=== PATIENT | female | born 1955 | race Caucasian/White ===

== ENCOUNTER 2019-03-16 06:15 | Day surgery (SDC) | payer BC ==
[~2019-03-16] VITALS: Ht 154.9 cm; Wt 108.0 kg
[~2019-03-16 06:15] MED LIST: GLUCOSAMINE1000 MG PO; LIPITOR10 MG PO; MULTIVITAMINS1 EAC7 PO; VITAMIN D400 UNIT PO
--- NOTE | 2019-03-16 08:02 | NUR ---
03/16/19 0802 Tess,Giana 0753 PT ARRIVED TO PACU ON 3L VIA NC, RESP EVEN AND UNLABROED. VSS. 0755 PT WOKE TO TACTILE STIMULI AND DENIES PAIN AND NAUSEA. PT ENCOURAGED TO PASS GAS/AIR. PT BACK TO SLEEP.
--- NOTE | 2019-03-16 10:42 | OR ---
[facility] [address] [place], [place] [address] Signed DATE OF OPERATION: 03/16/2019 SURGEON: Dariana Byers MD PREOPERATIVE DIAGNOSES: 1. Screening. 2. Status post PPH stapler and hemorrhoidectomy. POSTOPERATIVE DIAGNOSES: 1. 4 mm polyp at cecum. 2. 4 mm polyp at 62 cm. 3. Minimal internal and external hemorrhoids. 4. Small external anal skin tag. PROCEDURE: Colonoscopy with hot biopsy. ESTIMATED BLOOD LOSS: None. 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 She came to us in 2007, had fairly significant internal and external hemorrhoids. She underwent the PPH hemorrhoidopexy with both internal and external hemorrhoidectomy as well. She has now markedly improved. She has no personal or family history of colonic polyps or cancer. She returns now for followup colonoscopy. In the office, I gave her a pamphlet on colonoscopy. She understands the nature of the test along with the risks including, but not limited to gas bloating, crampy abdominal pain, bleeding, perforation, requiring surgery, and missed diagnosis. She also understands the need for IV conscious sedation. She had expressed understanding and wished to proceed. PROCEDURE NOTE: Arias was taken into our endoscopy suite and placed in the left lateral decubitus position. She received 4 mg of Versed and 100 mcg of fentanyl to cover the case. A digital rectal exam was performed. She has some very small external hemorrhoid tissue and one external anal skin tag. Good sphincter tone. The adult colonoscope was introduced and advanced all around into the cecum under direct visualization of camera without difficulty. Her prep was quite excellent. The scope was then slowly withdrawn. The above-mentioned polyps were easily removed with the help of hot biopsy forceps. Once in the rectum, the scope had been retroflexed and she has a small amount of Electronically Signed By: DARIANA BYERS MD 03/16/19 1042 PATIENT NAME: ARIAS BANEGAS OPERATIVE REPORT DATE OF : 59 REPORT #: [id number] PHYSICIAN: DARIANA BYERS MD PCP: TRACEY STEPHENSON MD REPORT IS CONFIDENTIAL AND NOT TO BE RELEASED WITHOUT AUTHORIZATION [facility] [address] [place] [id number] Signed internal hemorrhoid tissue. It has markedly improved from what she had before. After this, the gas was suctioned out and colonoscope removed. Arias tolerated the procedure quite well. RECOMMENDATIONS: I will see Arias back in my office in 7 to 14 days to review her results. MD DAV Andrea/JONATHANL /[id number] cc: MD Catrina Andrea MD Gwen Libby, MD Copies: DARIANA BYERS MD, PATRICIA J MD ~ Electronically Signed By: DARIANA BYERS MD 03/16/19 1042 PATIENT NAME: ARIAS BANEGAS OPERATIVE REPORT DATE OF : 59 REPORT #: [id number] PHYSICIAN: DARIANA BYERS MD PCP: TRACEY STEPHENSON MD REPORT IS CONFIDENTIAL AND NOT TO BE RELEASED WITHOUT AUTHORIZATION
== END 2019-03-16 12:00 | disposition home or self-care (01) ==
LOC: DS 06:15 → OPS 06:15 → DS 06:45 → OPS 12:00
PROVIDERS: Colon & Rectal Surgery
PROC: 0DBE8ZX Excision of Large Intestine, Via Natural or Artificial Opening Endoscopic, Diagnostic (ICD-10-PCS; 2019-03-16)
PROC: 0DBH8ZX Excision of Cecum, Via Natural or Artificial Opening Endoscopic, Diagnostic (ICD-10-PCS; principal; 2019-03-16 06:45)
DX: Z12.11 Encounter for screening for malignant neoplasm of colon (principal); D12.0 Benign neoplasm of cecum; D12.6 Benign neoplasm of colon, unspecified; K64.8 Other hemorrhoids; K64.4 Residual hemorrhoidal skin tags; E78.5 Hyperlipidemia, unspecified; E66.9 Obesity, unspecified; E78.00 Pure hypercholesterolemia, unspecified; Z98.890 Other specified postprocedural states; Z79.899 Other long term (current) drug therapy; Z68.41 Body mass index [BMI] 40.0-44.9, adult
CPT/HCPCS: 99153; G0500; J2250; J3010; J7120

== ENCOUNTER 2021-10-28 09:45 | Day surgery (SDC) | payer BC ==
[~2021-10-28] VITALS: Ht 154.9 cm; Wt 104.5 kg
--- NOTE | 2021-10-28 10:00 | NUR ---
both nares swabbed for covid-19 without complication. sample taken to lab.
[2021-10-28] MEDS ORDERED: CLINDAMYCIN HC300 MG PO (11:09)
[2021-10-28] MEDS ORDERED: OXYBUTYNIN CHLOR5 MG PO (11:10)
--- NOTE | 2021-10-28 16:28 | NUR ---
1515: CONSENT SIGNED. NO OTHER NEEDS AT THIS TIME. ANESTHESIA IN TO SPEAK WITH PATIENT. 1610: VS CHECKED. PATIENT WATCHING TV. NO NEEDS AT THIS TIME. CALL LIGHT WITHIN REACH.
--- NOTE | 2021-10-28 17:54 | NUR ---
10/28/21 175 Sheree Frey 1747 PATIENT ARRIVES TO PACU RESTING WITH EYES CLOSED. RESP EVEN AND UNLABORED, MASK AT 6 LITERS. PATIENT REPORTS DULL ACHE. 1752 PATIENT AWAKE OFF/ON. RESP EVEN AND UNLABORED, MASK AT 6 LITERS. REPORTS PAIN AT 3/10. DENIES NAUSEA.
[2021-10-28] MEDS ORDERED: ACETAMINOPHEN500 MG PO (18:11)
[2021-10-28] MEDS ORDERED: AMOX TR-K CLV1 EACH PO (18:11)
[2021-10-28] MEDS ORDERED: IBUPROFEN600 MG PO (18:11)
[2021-10-28] MEDS ORDERED: OXYCODON-ACETA1 EAC2 PO (18:11)
--- NOTE | 2021-10-28 18:35 | NUR ---
Patient arrives to med surg unit via stretcher. VSS, 95% on room air, pt given ice water, crackers and pudding. Prescriptions received and Dr Sheth writes prescriptions for home packs from ED as pharmacies are beginning to close at this time. IVF infusing. Pt states tolerable level of pain at this time, wants to tolerate PO intake prior to taking PO ABX and pain medication.
--- NOTE | 2021-10-28 19:05 | NUR ---
RECEIVED REPORT FROM DAY SHIFT RN. PATIENT IS RESTING IN SURGERY STRETCHER. PATIENT DENIES ANY PAIN OR NAUSEA. CALL LIGHT IN [facility].
--- NOTE | 2021-10-28 19:55 | NUR ---
ASSISTED PATIENT WALKED TO THE BATHROOM. PATIENT VOIDED 550ML. PATIENT IS ALL DRESSED UP. PATIENT IS BACK IN STRETCHER. PATIENT PROVIDED TV REMOTE.
--- NOTE | 2021-10-28 20:00 | NUR ---
PATIENT ASSISTED TO THE RESTROOM A SBA. PATIENT IS STEADY ON HER FEET. GROUP LEADER WAFER POLISHING REMAINS IN THE ROOM. CALL LIGHT IN REACH.
--- NOTE | 2021-10-28 20:30 | NUR ---
PATIENT IS RESTING IN BED WATCHING TV. PHARMACY PRESENT IN THE ROOM. PATIENT DENIES ANY NEEDS. CALL LIGHT IN REACH.
--- NOTE | 2021-10-28 21:45 | NUR ---
VS COMPLETED @ 2049, SCHEDULED MEDICATIONS GIVEN PRIOR TO DISCHARGE. EDUCATION PT AND HOW TO CARE FOR THE SONJA, HOW TO EMPTY. DISCHARGE PAPERWORK AND INSTRUCTIONS GIVEN TO BOTH PT AND . IV WAS DC'D INTACT. @ 2109 PT WAS TAKEN OUT TO PRIVATE AUTO VIA THE BACK HALLWAY IN WHEELCHAIR WITH SECURITY SAXENA. ALL QUESTIONS ANSWERED. HOME PACK AMOXICILLIN WELL PAIN MEDICATION SENT WITH . ANTON, , DID GET SCRIPTS FILLED AND PICKUP AT [facility] PRIOR TO DISCHARGE.
--- NOTE | 2021-10-29 13:37 | HP ---
[facility] [address] [place], [place] [address] Signed ADMISSION DATE: 10/28/2021 PROBLEM: Right inferolateral persistent breast abscess. HISTORY OF PRESENT ILLNESS: This 66-year-old white woman, last week on about Wednesday, was identified as having erythema and tenderness of the right lateral inferior breast. She has undergone mammogram in the past year, which was normal and has mammograms annually. She does have family history of breast cancer in a sister. She has never had breast problems in the past. She was identified as having a probable infection including cellulitic changes and possible abscess. She underwent imaging study including an ultrasound on October 22, 2021 and was found likely to have an abscess and underwent drainage by Dr. Rolon, the radiologist for that. Gram stains were obtained. Final result is not available through the computer unfortunately. She was initially seen by Dr. Toussaint and now seen by Dr. Laurel Martin. I was called by Dr. Martin, who evaluated the patient in his clinic today showing persistence of a mass in the right breast, improved cellulitic changes, but definitely a tenderness and a dense mass and excoriation of skin over the area of previous aspiration. I saw the patient in Dr. Martin office exam room. PAST MEDICAL HISTORY: Remarkable for obesity. MEDICATIONS: Her only medications include: 1. Clindamycin 300 mg 4 times a day. 2. Oxybutynin chloride 5 mg daily. 3. Vitamin D3 400 units daily. SOCIAL HISTORY: She is . Her is Jemal Smith, director of Pastoral Care Services in the hospital. REVIEW OF SYSTEMS: Electronically Signed By: ODESSA DUENAS MD 10/29/21 1337 PATIENT NAME: ARIAS SMITH HISTORY AND PHYSICAL DATE OF : 59 REPORT #: [id number] PHYSICIAN: ODESSA DUENAS MD PCP: SHARI TOUSSAINT MD REPORT IS CONFIDENTIAL AND NOT TO BE RELEASED WITHOUT AUTHORIZATION [facility] [address] [place], [place] [address] Signed She denies any fever or chills currently. She has had no nipple discharge. Pain in her breast is persistent, but not worsening. She has had no fever or chills. PHYSICAL EXAMINATION: GENERAL: A pleasant white woman who looks to be in no significant distress at the moment. HEENT: Trachea is midline. CHEST: Shows normal respiratory excursion. Pulses regular. With the clinic nurse of Dr. Martin, examination of the right breast was undertaken showing an excoriated area of the right lateral inferior breast as well as a dense mass about 5 cm in size with focal tenderness. There is still some mild erythema of the breast. There is no nipple discharge. Review of imaging studies including the breast ultrasound report showed no evidence particularly of breast cancer. ASSESSMENT: The patient has persistent breast abscess and although improved from drainage, certainly not complete drainage at this point. I have recommended admission anticipating incision and drainage of the abscess process. The risks of bleeding, infection, cosmetic deformity, and so forth were reviewed with her. It would be unlikely that she would have breast cancer associated with this problem, though she is at increased risk based on her family history with her sister's history of breast cancer. The patient understands the risks we have described and wishes to proceed. We will plan to do this later in the day. Notably, she has then nothing to eat all day except for her medications, which she took with a sip of water today. Odessa Duenas MD JM/MODL /[id number] cc: Shari Toussaint MD Electronically Signed By: ODESSA DUENAS MD 10/29/21 1337 PATIENT NAME: ARIAS SMITH HISTORY AND PHYSICAL DATE OF : 59 REPORT #: [id number] PHYSICIAN: ODESSA DUENAS MD PCP: SHARI TOUSSAINT MD REPORT IS CONFIDENTIAL AND NOT TO BE RELEASED WITHOUT AUTHORIZATION [facility] [address] [place], [place] [address] Gonzales Evans Copies: LAUREL MARTIN MD ~ Electronically Signed By: ODESSA DUENAS MD 10/29/21 1337 PATIENT NAME: ARIAS SMITH HISTORY AND PHYSICAL DATE OF : 59 REPORT #: [id number] PHYSICIAN: ODESSA DUENAS MD PCP: SHARI TOUSSAINT MD REPORT IS CONFIDENTIAL AND NOT TO BE RELEASED WITHOUT AUTHORIZATION
--- NOTE | 2021-10-29 13:37 | OR ---
[facility] [address] [place], [place] [address] Signed DATE OF OPERATION: 10/28/2021 SURGEON: Odessa Duenas MD PREOPERATIVE DIAGNOSES: 1. Recent right breast cellulitis with abscess (drained by ultrasound guidance). 2. Persistent tender mass, right lateral breast, possible persistent abscess. 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 PROCEDURES: 1. Excision of right breast skin with breast parenchyma in continuity (wide breast biopsy). 2. Irrigation and debridement of remaining fibrotic and inflammed parenchyma of right lateral breast. 3. Placement of closed suction drain (Johnny drain). ANESTHESIA: General endotracheal, Mannie Mcgregor CRNA DRAINS: 7 mm Johnny. INDICATION: This 66-year-old white woman has undergone in the past right bilateral breast reduction operation. She is a patient of Dr. Shari Toussaint generally. Last week on or about Wednesday (today is Wednesday). She was noted to have erythema of the breast and high suggestion of abscess. Ultrasonographic evaluation was undertaken and percutaneous abscess drainage was performed by Dr. Rolon, radiologist. She was placed on clindamycin antibiotic. She has had persistent erythema of the breast and was seen by Dr. Laurel Martin today, who called me to his clinic where I evaluated her. She had general improvement of the cellulitic process, but still was some skin excoriation and de epithelialization of the skin and a dense mass in the area of prior aspiration biopsy. The desquamation of the skin associated with this was approximately 2 x 3 cm in size. Clinical examination showed her likely to have persistent abscess or recurrent abscess or other similar process and on that basis, she was directly admitted and is now to undergo drainage of the abscess if recurrent, and debridement as appropriate. Electronically Signed By: ODESSA DUENAS MD 10/29/21 1337 PATIENT NAME: ARIAS BANEGAS OPERATIVE REPORT DATE OF : 59 REPORT #: [id number] PHYSICIAN: ODESSA DUENAS MD PCP: SHARI TOUSSAINT MD REPORT IS CONFIDENTIAL AND NOT TO BE RELEASED WITHOUT AUTHORIZATION [facility] [address] [place], [place] [address] Signed The patient and her understand the risks of bleeding, infection, cosmetic deformity, and other unforeseen complications and wished to proceed. FINDINGS: The area of bulky mass was in the lateral inferior aspect of the right breast. Excoriated skin approximately 3 cm in length was noted directly over this, which did not look to be salvageable by usual wound healing method. On that basis, elliptical excision was undertaken of that skin and dissection carried through the subcutaneous tissue into the breast parenchyma where intense inflammatory changes were noted. The area of prior drainage appeared to be free of true liquid pus. The needle tract could be seen lateral to the site of excoriated skin. Dense necrotic fat and so forth were noted. On that basis, wide resection was undertaken. Dissection was carried back to normal fat tissue. Lots of recruited blood vessels were noted to the area and electrocautery was used to secure hemostasis there. Gram stain and cultures were obtained of the wound. This was not a typical recurrent or persistent abscess and granulomatous mastitis is considered a possibility. We are mindful that she does have family history of breast cancer in a sister. She has had a negative mammogram in November of this year. DESCRIPTION OF PROCEDURE: The patient was brought to the operating room, given a general endotracheal anesthetic. Preoperative antibiotic Ancef was given. Sequential compression device stockings were used. The right breast, axilla, and shoulder area was prepared with a chlorhexidine solution and draped sterilely. An evaluation of the mass showed it to be at least 4-5 cm in size. The excoriated skin, which likely was accounting for her "drainage" was noted. Elliptical excision was undertaken of this in the few millimeters margin and dissection carried through the subcutaneous tissue where necrotic fat was noted. Further dissection deep into the parenchyma of the breast showed the area of presumed abscess cavity to be free of free-flowing purulence. That was Gram stain and cultured. The necrotic tissue in the subdermal space was quite obvious otherwise, however. Wide resection was undertaken of this area and the actual procedure was really a generous breast biopsy excising the inflammatory cavity and necrotic tissue completely. Irrigation was undertaken and hemostasis assured with electrocautery. Aricept dilute chlorhexidine solution was used to irrigate the wound after saline irrigation. Through a separate stab incision in the inframammary crease, a 7 mm flat Johnny drain was placed. The wound was then closed with interrupted 2-0 Vicryl in deep dermal layer. The skin was not otherwise closed. A bulb suction provided good suction to the wound. An Acticoat dressing was then applied to the incision site itself. The drain was secured Electronically Signed By: ODESSA DUENAS MD 10/29/21 1337 PATIENT NAME: ARIAS BANEGAS OPERATIVE REPORT DATE OF : 59 REPORT #: [id number] PHYSICIAN: ODESSA DUENAS MD PCP: SHARI TOUSSAINT MD REPORT IS CONFIDENTIAL AND NOT TO BE RELEASED WITHOUT AUTHORIZATION [address], [place] [address] Signed to the skin with nylon suture and attached to bulb suction, which allowed for persistent suctioning. The patient was ultimately extubated and transferred to the recovery room in good condition having suffered no complications. Sponge, needle, and instruments counts reported as correct x3. MD LAURA Matta/GISSELLE /[id number] cc: MD Shari Evans MD Mark MD Peterson Copies: LAUREL MARTIN MD ~ Electronically Signed By: ODESSA DUENAS MD 10/29/21 1337 PATIENT NAME: ARIAS BANEGAS OPERATIVE REPORT DATE OF : 59 REPORT #: [id number] PHYSICIAN: ODESSA DUENAS MD PCP: SHARI TOUSSAINT MD REPORT IS CONFIDENTIAL AND NOT TO BE RELEASED WITHOUT AUTHORIZATION
--- NOTE | 2021-10-31 17:37 | PATH ---
[facility] [address] [place], [place] [address] Signed SPECIMEN(S): A RIGHT LATERAL BREAST SPECIMEN SOURCE: A. RIGHT LATERAL BREAST CLINICAL HISTORY: Right breast abscess, incisional biopsy FINAL PATHOLOGIC DIAGNOSIS: Breast, right lateral, incisional biopsy: - Breast tissue with abscess formation, fat necrosis and skin ulceration. - Granulation tissue formation is forming in the dermis in the dermis immediately underneath the ulcer. TWK:cml:C2NR MICROSCOPIC EXAMINATION: Histologic sections of all submitted blocks are examined by light microscopy. These findings, together with the gross examination, support the pathologic diagnosis. GROSS DESCRIPTION: The specimen, labeled "Arias Smith," and designated on the requisition "incisional breast biopsy right lateral breast," is received in formalin and consists of 31 g of yellow-pink fibroadipose tissue that is 7.6 x 5.4 x 2.1 cm in aggregate. The largest tissue fragment is partially surfaced by a 4.7 x 2.1 cm ellipse of skin. The skin surface is a pale henley with an area of quintana-green discoloration that is 2.6 x 1.9 cm. This area of discoloration extends into the skin margin. The tissue fragments are inked and sectioned revealing a yellow-white dense rubbery fibrous tissue with focal areas of yellow chalky material. No discrete mass lesions are grossly identified. Soils Technician sections are submitted in cassettes (A1-A6). Cold ischemia time: Insufficient data to calculate. Approximate Formalin time: 24-28 hours. FB (under the direct supervision of a pathologist) The Gross Description was prepared using a voice recognition system. The report was reviewed for accuracy; however, sound-alike word errors, addition and/or deletions may occur. If there is any question about this report, please contact Client Services. PATIENT NAME: ARIAS SMITH PATHOLOGY DATE OF : 59 REPORT #: [id number] PHYSICIAN: JESSICA LEE PCP: TRACEY STEPHENSON MD REPORT IS CONFIDENTIAL AND NOT TO BE RELEASED WITHOUT AUTHORIZATION [facility] [address] [place], [place] [address] Signed PERFORMING LABORATORY: The [facility] [place] [address] (Network Announcer: Galina Beckham MD; CLIA# [id number]). Professional interpretation was performed by [facility], [address] [address] (CLIA# [id number]). Diagnostician: Chadwick Calzada MD Pathologist Electronically Signed 10/31/2021 Copies: ~ PATIENT NAME: ARIAS SMITH PATHOLOGY DATE OF : 59 REPORT #: [id number] PHYSICIAN: JESSICA LEE PCP: TRACEY STEPHENSON MD REPORT IS CONFIDENTIAL AND NOT TO BE RELEASED WITHOUT AUTHORIZATION
== END 2021-10-28 21:10 | disposition home or self-care (01) ==
LOC: DS 09:45 → MS 18:35 → DS 21:10
PROVIDERS: ATTEND Surgery
PROC: 0HB5XZZ Excision of Chest Skin, External Approach (ICD-10-PCS; principal; 2021-10-28 14:45)
DX: N61.1 Abscess of the breast and nipple (principal); N64.1 Fat necrosis of breast; L98.499 Non-pressure chronic ulcer of skin of other sites with unspecified severity; Z80.3 Family history of malignant neoplasm of breast; Z20.822 Contact with and (suspected) exposure to COVID-19
CPT/HCPCS: 00404; 80053; 85025; 87070; 87075; 87205; C9803; J0131; J0690; J1100; J1885; J2001; J2405; J2704; J3010; J7121; U0003

== ENCOUNTER 2023-03-18 08:24 | Day surgery (SDC) | payer BC ==
[~2023-03-18 08:24] MED LIST changes: +ACETAMINOPHEN500 MG PO; +AMITRIPTYLINE H25 MG PO; +AMOX TR-K CLV1 EACH PO; +CLINDAMYCIN HC300 MG PO; +DITROPAN XL10 MG PO; +IBUPROFEN600 MG PO; +LISINOPRIL10 MG PO; +LOSARTAN POTASS25 MG PO; +OXYBUTYNIN CHLOR5 MG PO; +OXYCODON-ACETA1 EAC2 PO
[2023-03-18 08:45] VITALS: BP 134/64
--- NOTE | 2023-03-18 09:46 | NUR ---
WAS WITH PT WHEN I CAME IN. WE VISITED FOR A BIT. PT EXPRESSED THEY WERE READY FOR THE PROCEEDURE. PRAYED WITH PT AND .
--- NOTE | 2023-03-18 11:07 | NUR ---
03/18/23 1107 Keshia Gamble 1055-PATIENT ARRIVED TO PACU ON 2L NC RR EVEN. PATIENT LAYING LEFT LATERAL IVF INFUSING. PATIENT AWAKE DROWSY DENIES PAIN OR NAUSEA ENCOURAGED TO PASS GAS. BP CUFF READING HIGH CUFF ADJUSTED. 1106-BP 118/63 BP CUFF READJUSTED AND NEW FOREARM CUFF PLACE. PATIENT SLEEPING 2L NC RR EVEN 98% IVF INFUSING
[2023-03-18 11:46] VITALS: BP 115/72
--- NOTE | 2023-03-18 17:37 | OR ---
[facility] [address] [place], [place] [address] Signed DATE OF OPERATION: 03/18/2023 SURGEON: Odessa Duenas MD PREOPERATIVE DIAGNOSIS: History of polyps. POSTOPERATIVE DIAGNOSES: 1. External perianal skin tags (large). 2. Polyps x2, right colon. PROCEDURE: Total colonoscopy to cecum with cold snare polypectomy x1, cold morcellation polypectomy x1. ANESTHESIA: Intravenous sedation; fentanyl 100 mcg and Versed 4 mg. INDICATION: This 68-year-old white woman is a patient Dr. Toussaint. She has undergone colonoscopy in the past and had been found to have polyps. She is symptom free currently. She is admitted to undergo surveillance colonoscopy. She understands the risk of bleeding, infection, and perforation. FINDINGS: The prep was excellent. Complete colonoscopy was undertaken to the cecum without question. She did have an external skin tag that was rather large on the perianal area. She had two small polyps of the right colon, both excised completely. The remaining colon was essentially normal. DESCRIPTION OF PROCEDURE: The patient was brought to the endoscopy suite and placed in the lateral decubitus position, given intravenous sedation to the point of slurred speech and nystagmus. Digital rectal examination was normal except for external skin tags as previously described. An Olympus video colonoscope was passed in the rectum and manipulated throughout the colon ultimately intubating the cecum itself. The ileocecal valve and appendiceal orifice were normal. Scope was withdrawn in the mid ascending colon with two small polyps. One excised with cold snare technique, the other with cold morcellation technique. Both were retrieved and passed for pathology. The scope was withdrawn further and remaining colon was normal including retroflexed view. Scope was Electronically Signed By: ODESSA DUENAS MD 03/18/23 1737 PATIENT NAME: ARIAS BANEGAS OPERATIVE REPORT DATE OF : 59 REPORT #: [id number] PHYSICIAN: ODESSA DUENAS MD PCP: SHARI TOUSSAINT MD REPORT IS CONFIDENTIAL AND NOT TO BE RELEASED WITHOUT AUTHORIZATION [facility] [address] [place], [place] [address] Signed removed and the patient was taken to the recovery room in good condition. CONCLUDING DIAGNOSIS: Polyps x2. PLAN: Recommend repeat colonoscopy in 5 years, sooner if clinically indicated. She will return to the ongoing care of Dr. Toussaint. Additionally, if she wishes to have the external tag excised from the perianal area that can be done under local in the office most likely. MD LAURA Matta/MODL /[id number] cc: Shari Toussaint MD Copies: ~ Electronically Signed By: ODESSA DUENAS MD 03/18/23 1737 PATIENT NAME: ARIAS BANEGAS OPERATIVE REPORT DATE OF : 59 REPORT #: [id number] PHYSICIAN: ODESSA DUENAS MD PCP: SHARI TOUSSAINT MD REPORT IS CONFIDENTIAL AND NOT TO BE RELEASED WITHOUT AUTHORIZATION
--- NOTE | 2023-03-19 15:57 | PATH ---
[facility] [address] [facility] [place], [place] [address] Signed SPECIMEN(S): A ASCENDING/RIGHT COLON POLYP SPECIMEN(S): B ASCENDING/RIGHT COLON POLYP SPECIMEN SOURCE: A. ASCENDING/RIGHT COLON POLYP B. ASCENDING/RIGHT COLON POLYP CLINICAL HISTORY: Colonoscopy. Pre: History of colon polyps. Post: Polyps x 2. FINAL PATHOLOGIC DIAGNOSIS: A. Ascending/right colon polyp: - Tubular adenoma (two fragments). B. Ascending/right colon polyp: - Tubular adenoma (one fragment). JVR:smn:C2NR MICROSCOPIC EXAMINATION: Histologic sections of all submitted blocks are examined by light microscopy. These findings, together with the gross examination, support the pathologic diagnosis. GROSS DESCRIPTION: A. The specimen, labeled and designated "Luis, ascending colon polyp," is received in formalin and consists of two henley soft tissue fragments, ranging from 0.1-0.3 cm. Entirely submitted in (A1). B. The specimen, labeled and designated "Luis, ascending colon polyp," is received in formalin and consists of two henley soft tissue fragments, ranging from 0.2 cm. Entirely submitted in (B1). JS (under the direct supervision of a pathologist) The Gross Description was prepared using a voice recognition system. The report was reviewed for accuracy; however, sound-alike word errors, addition and/or deletions may occur. If there is any question about this report, please contact Client Services. PERFORMING LABORATORY: The technical component was performed by [facility], [address] [place] [id number] (CLIA# [id number]). Professional interpretation was performed by [facility], [address] [place] [address], [place] [address] (CLIA#: [id number]). PATIENT NAME: ARIAS BANEGAS PATHOLOGY DATE OF : 59 REPORT #: [id number] PHYSICIAN: JESSICA PATHOLOGY PCP: TRACEY STEPHENSON MD REPORT IS CONFIDENTIAL AND NOT TO BE RELEASED WITHOUT AUTHORIZATION [address] [place] [address] Signed Diagnostician: Uday Galindo MD Pathologist Electronically Signed 03/19/2023 Copies: ~ PATIENT NAME: ARIAS BANEGAS PATHOLOGY DATE OF : 59 REPORT #: [id number] PHYSICIAN: JESSICA PATHOLOGY PCP: TRACEY STEPHENSON MD REPORT IS CONFIDENTIAL AND NOT TO BE RELEASED WITHOUT AUTHORIZATION
== END 2023-03-18 11:55 | disposition home or self-care (01) ==
LOC: OPS 08:24 → DS 08:30 → OPS 09:45 → DS 14:00
PROVIDERS: ATTEND Surgery
DX: Z12.11 Encounter for screening for malignant neoplasm of colon (principal); D12.2 Benign neoplasm of ascending colon; K64.4 Residual hemorrhoidal skin tags; Z86.010 Personal history of colon polyps; E66.01 Morbid (severe) obesity due to excess calories; N61.1 Abscess of the breast and nipple; I10 Essential (primary) hypertension; Z79.899 Other long term (current) drug therapy
CPT/HCPCS: 99153; G0500; J2250; J3010; J7121